=== PATIENT | female | born 1960 | race Asian ===

== ENCOUNTER 2018-01-23 12:38 | Emergency (ER) | payer SELFPAY ==
[~2018-01-23] VITALS: Ht 157.5 cm; Wt 52.0 kg
[2018-01-23 12:45] VITALS: BP 118/59; PULSE 79; RESP 17; TEMP 97.3; O2SAT 97
[2018-01-23] MEDS ORDERED: AMOX875T PO (13:18)
[2018-01-23] MEDS ORDERED: FLUT1SPR5 EACH NARE (13:18)
--- NOTE | 2018-01-23 13:22 | PD ---
HPI Chief Complaint: Cold / Flu Symptoms Time Seen by Provider: 13:03 Travel History International Travel<30 days: No Contact w/Intl Traveler<30days: No Traveled to known affect area: No History of Present Illness HPI 57-year-old [place] presents emergency department with 2 week history of upper respiratory symptoms including sinus headache, congestion, rhinitis, postnasal drip, cough, and sore throat. Patient states her symptoms are worse when she lays down at night. She denies significant fever or ear pain. Patient has been taking [id number] cough medications without improvement. Patient denies significant shortness of breath, wheezing, or cough. She denies reflux or nausea or vomiting. No abdominal pain. She has no known drug allergies PFSH Past Medical History Medical History: Denies Significant Hx Tetanus Vaccination: Unknown ?: Not Past Surgical History Section: Yes Social History Alcohol Use: No Tobacco Use: No Substance Use: No Allergies-Medications (Allergen,Severity, Reaction): Coded Allergies: No Known Allergies (Unverified , 01/23/18) Reported Meds & Prescriptions Reported Meds & Active Scripts Active Flonase Nasal [place] (Fluticasone Nasal [place]) 50 Mcg/Act [place] 100 Mcg EACH NARE BID Amoxicillin 875 Mg Tab 875 Mg PO BID 10 Days Review of Systems Except as stated in HPI: all other systems reviewed are Neg General / Constitutional: No: Fever, Chills Eyes: No: Visual changes HENT: Positive: Headaches, Sore Throat, Rhinitis, Rhinorrhea, Congestion, No: Vertigo, Lightheadedness, Nosebleed, Neck Stiffness, Neck Pain, Dental Difficulties, Ear Discharge, Earache Cardiovascular: No: Chest Pain or Discomfort Respiratory: Positive: Cough, No: Shortness of Breath, Wheezing, Sneezing Gastrointestinal: No: Nausea, Vomiting, Diarrhea, Abdominal Pain Genitourinary: No: Dysuria Musculoskeletal: No: Pain Skin: No Rash Neurologic: No: Weakness Psychiatric: No: Depression Endocrine: No: Polydipsia Hematologic/Lymphatic: No: Easy Bruising Physical Exam Narrative GENERAL: Patient appears in no acute distress per SKIN: Warm and dry. Normal color. Normal turgor HEAD: Atraumatic. Normocephalic. Patient has moderate sinus tenderness in both frontal and maxillary sinuses more on the left than the right EYES: Pupils equal and round. No scleral icterus. No injection or drainage. ENT: No nasal bleeding or discharge. Mucous membranes pink and moist. TMs are dull but otherwise unremarkable bilaterally. Posterior pharynx is somewhat erythematous with cobblestoning and postnasal drip noted. No significant tonsillitis or exudate is noted. NECK: Trachea midline. Supple and nontender without significant lymphadenopathy CARDIOVASCULAR: Regular rate and rhythm. RESPIRATORY: No accessory muscle use. Clear to auscultation. Breath sounds equal bilaterally. MUSCULOSKELETAL: Extremities without clubbing, cyanosis, or edema. No obvious deformities. NEUROLOGICAL: Awake and alert. No obvious cranial nerve deficits. Motor grossly within normal limits. Five out of 5 muscle strength in the arms and legs. Normal speech. PSYCHIATRIC: Appropriate mood and affect; insight and judgment normal. Data Data Last Documented VS Vital Signs Date Time Temp Pulse Resp B/P (MAP) Pulse Ox O2 Delivery O2 Flow Rate FiO2 01/23/18 12:45 97.3 79 17 118/59 (78) 97 MDM Medical Decision Making Medical Screen Exam Complete: Yes Emergency Medical Condition: Yes Differential Diagnosis Upper respiratory infection. Sinusitis. Postnasal drip. Narrative Course Patient given amoxicillin 875 twice daily 10 days. Patient started on Flonase nasal spray 2 sprays each nostril daily. Patient can continue [id number] cough and cold medicines as needed. Patient to follow-up if symptoms do not improve or worsen as needed. Diagnosis Primary Impression: Acute pansinusitis, unspecified Qualified Codes: J01.40 - Acute pansinusitis, unspecified Patient Instructions: General Instructions, Sinusitis (ED) Additional Instructions: Patient given amoxicillin 875 twice daily 10 days. Patient started on Flonase nasal spray 2 sprays each nostril daily. Patient can continue [id number] cough and cold medicines as needed. Patient to follow-up if symptoms do not improve or worsen as needed. Med/Other Pt SpecificInfo: Prescription(s) given Scripts Fluticasone Nasal [place] (Flonase Nasal [place]) 50 Mcg/Act [place] 100 MCG EACH NARE BID for Allergies, #1 BOTTLE 0 Refills Prov: Manan Le MD 01/23/18 Amoxicillin (Amoxicillin) 875 Mg Tab 875 MG PO BID for Infection for 10 Days, #20 TAB 0 Refills Prov: Manan Le MD 01/23/18 Disposition: 01 DISCHARGE HOME Condition: Stable Thomas Perez Jan 23, 2018 13:22
== END 2018-01-23 13:33 | disposition home or self-care (01) ==
LOC: NEPK 12:38
DX: J01.40 Acute pansinusitis, unspecified (principal)
CPT/HCPCS: 99283

== ENCOUNTER 2018-02-23 10:40 | Emergency (ER) | payer BC ==
[~2018-02-23 10:40] MED LIST: AMOX875T PO; FLUT1SPR5 EACH NARE
[2018-02-23 10:43] VITALS: BP 110/52; PULSE 73; RESP 16; TEMP 97.7; O2SAT 98
[2018-02-23] MEDS ORDERED: PRED20 PO (11:28)
--- NOTE | 2018-02-23 11:30 | PD ---
HPI Chief Complaint: Skin Problem Time Seen by Provider: 10:57 Travel History International Travel<30 days: No Contact w/Intl Traveler<30days: No Traveled to known affect area: No History of Present Illness HPI The patient was seen and examined in the presence of the nurse. This patient complains of a rash. It is itchy. Duration 2 days. PFSH Past Medical History ?: Not Past Surgical History Section: Yes Social History Alcohol Use: No Tobacco Use: No Substance Use: No Allergies-Medications (Allergen,Severity, Reaction): Coded Allergies: No Known Allergies (Unverified , 02/23/18) Reported Meds & Prescriptions Reported Meds & Active Scripts Active Flonase Nasal [place] (Fluticasone Nasal [place]) 50 Mcg/Act [place] 100 Mcg EACH NARE BID Amoxicillin 875 Mg Tab 875 Mg PO BID 10 Days Review of Systems General / Constitutional: No: Fever HENT: No: Headaches Cardiovascular: No: Chest Pain or Discomfort Physical Exam Narrative GASTROINTESTINAL: Abdomen soft, non-tender, nondistended. Positive bowel sounds. No hepato-splenomegaly, or palpable masses. No guarding. Psych: Normal mood and affect. Normal insight and judgment. Skin: Patient has some urticarial patches on the trunk and upper extremities Data Data Last Documented VS Vital Signs Date Time Temp Pulse Resp B/P (MAP) Pulse Ox O2 Delivery O2 Flow Rate FiO2 02/23/18 11:06 70 20 02/23/18 10:43 97.7 110/52 (71) 98 MDM Medical Decision Making Medical Screen Exam Complete: Yes Emergency Medical Condition: Yes Medical Record Reviewed: Yes Differential Diagnosis Allergic reaction, eczema, dermatitis Narrative Course Presentation seems most consistent with allergic reaction. It is unclear what she is reacting to. She is on no medications. Prescribed 5 days of prednisone. Recommend Benadryl as needed. Follow-up with primary care. Diagnosis Primary Impression: Allergic reaction Qualified Codes: T78.40XA - Allergy, unspecified, initial encounter Additional Instructions: The patient was advised to follow up with their physician and return if they worsen. Med/Other Pt SpecificInfo: Prescription(s) given Scripts Prednisone (Prednisone) 20 Mg Tab 40 MG PO DAILY, #10 TAB 0 Refills Take 40 mg (2 tablets) daily for 5 days Prov: Tano Mobley MD 02/23/18 Disposition: 01 DISCHARGE HOME Condition: Stable Tano Mobley MD February 23, 2018 11:30
== END 2018-02-23 19:25 | disposition home or self-care (01) ==
LOC: NEPD 10:40
DX: T78.40XA Allergy, unspecified, initial encounter (principal); Z79.899 Other long term (current) drug therapy
CPT/HCPCS: 99283